=== PATIENT | male | born 1950 | race Hispanic/Latino ===

== ENCOUNTER 2017-12-17 12:03 | Outpatient (CLI) | payer MEDICARE ==
--- NOTE | 2017-12-17 13:22 | XRay Report ---
Right hip: Pain. There is a total right hip replacement. Both the acetabular and femoral components appear well seated with normal positioning. No attachment lucencies are identified. AP view of the pelvis demonstrates spurring of the inferior margin of the right acetabulum and superior spurring of the femur head. There appears to be a small bone island in the left acetabulum. Impressions: Right hip replacement with no apparent complication.
== END 2017-12-17 12:04 | disposition home or self-care (01) ==
LOC: SPVIMAG 12:03
PROVIDERS: ATTEND Orthopaedic Surgery Sports Medicine
DX: M25.551 Pain in right hip (principal); Z96.641 Presence of right artificial hip joint